=== PATIENT | female | born 1955 | race Caucasian/White ===

== ENCOUNTER 2019-12-21 06:38 | Inpatient (IN) ==
[~2019-12-21 06:38] MED LIST: Acetaminophen IV 1,000 MG/100 ML INFUS..BTL IVPB ONE; Famotidine 20 MG/2 ML VIAL IVP ONE; Pregabalin 75 MG CAPSULE PO ONE; Ringers Solution, Lactated 1,000 ML IVC SCH
[2019-12-21] MEDS ORDERED: CeFAZolin Syr 2,000MG/20 ML 2,000 MG/20 ML SYRINGE IVPB ONE (06:59)
[2019-12-21] MEDS ORDERED: *HR* FentaNYL (PF) 100 MCG/2 ML VIAL ONE (07:16)
[2019-12-21] MEDS ORDERED: *HR* Propofol 200 MG/20 ML VIAL IVP ONE (07:16)
[2019-12-21] MEDS ORDERED: *HR* Midazolam HCl 2 MG/2 ML VIAL ONE (07:16)
[2019-12-21] MEDS ORDERED: Lidocaine -MPF 2% 2 ML VIAL ONE (07:18)
[2019-12-21] MEDS ORDERED: Ondansetron 4 MG/2 ML VIAL ONE (07:21)
[2019-12-21] MEDS ORDERED: Dexamethasone 4 MG/ML VIAL ONE ×2 (07:21→08:11)
[2019-12-21] MEDS ORDERED: *HR* HYDROmorphone PF 0.5 MG/0.5 ML SYRINGE IVP PRN (07:32)
[2019-12-21] MEDS ORDERED: *HR* Metoprolol 5 MG/5 ML VIAL IVP PRN (07:32)
[2019-12-21] MEDS ORDERED: Naloxone 0.4 MG/ML INJ IVP PRN ×2 (07:32→12:37)
[2019-12-21] MEDS ORDERED: *HR* FentaNYL (PF) 100 MCG/2 ML VIAL IVP PRN (07:32)
[2019-12-21] MEDS ORDERED: Ondansetron 4 MG/2 ML VIAL IVP PRN ×2 (07:32→12:37)
[2019-12-21] MEDS ORDERED: flumazeniL 0.5 MG/5 ML VIAL IVP PRN (07:32)
[2019-12-21] MEDS ORDERED: Famotidine 20 MG/2 ML VIAL IVP ONE (07:45)
[2019-12-21] MEDS ORDERED: Bacitracin 50,000 UNIT, Polymyxin B Sulfate 500,000 UNIT, Sodium Chloride IRRigation 1,... IR ONE (07:45)
[2019-12-21] MEDS ORDERED: Acetaminophen IV 1,000 MG/100 ML INFUS..BTL IVPB ONE (07:45)
[2019-12-21] MEDS ORDERED: EPHEDrine 50 MG/ML VIAL ONE (08:56)
[2019-12-21] MEDS ORDERED: Neostigmine Methylsulfate 3 MG/3 ML SYRINGE ONE (09:10)
[2019-12-21] MEDS ORDERED: Ringers Solution, Lactated 1,000 ML IVC SCH (12:37)
[2019-12-21] MEDS: Gabapentin 300 MG CAPSULE PO SCH ×2 (15:27→20:30)
[2019-12-21] MEDS: Primidone 50 MG TABLET PO SCH ×2 (15:27→20:30)
[2019-12-21] MEDS: CeFAZolin 2 GM/120 ML BAG IVPB SCH ×2 (17:57→23:21)
[2019-12-21] MEDS: Budesonide/Formoterol 160/4.5 1 PUFF INH IH SCH (19:56)
[2019-12-21] MEDS: *HR* HYDROcodone/Acet 5/325 mg TABLET PO PRN (20:30)
[2019-12-21] MEDS: *HR* Metformin 500 MG TABLET PO SCH (20:31)
[2019-12-21] MEDS: Acetaminophen 325 MG TABLET PO PRN (23:21)
[2019-12-22] MEDS: Budesonide/Formoterol 160/4.5 1 PUFF INH IH SCH ×2 (07:39→22:53)
[2019-12-22] MEDS: Tiotropium 18 MCG inhalation IH SCH (07:41)
[2019-12-22] MEDS ORDERED: tiZANidine 4 MG TABLET PO PRN (08:58)
[2019-12-22] MEDS ORDERED: NON-FORMULARY MEDICATION 1 EACH EACH (Fish Oil/Dha/Epa [Fish Oil 1,200 Mg Fish Oil] 1 CAP) PO SCH (09:00)
[2019-12-22] MEDS: hydroCHLOROthiazide 25 MG TABLET PO SCH (09:23)
[2019-12-22] MEDS: amLODIPine 5 MG TABLET PO SCH (09:23)
[2019-12-22] MEDS: *HR* OxyCODONE Immed Rel 5 MG TABLET PO PRN ×2 (09:24→19:54)
[2019-12-22] MEDS: Multivit/Ca/Min/Fe/FA 1 TAB TABLET PO SCH (09:24)
[2019-12-22] MEDS: Valsartan 80 MG TABLET PO SCH (09:24)
[2019-12-22] MEDS: Gabapentin 300 MG CAPSULE PO SCH ×3 (09:24→19:55)
[2019-12-22] MEDS: *HR* Metformin 500 MG TABLET PO SCH ×2 (09:24→19:54)
[2019-12-22] MEDS: Metoprolol XL (24 HR) Succ 25 MG TAB.ER.24H PO SCH (09:24)
[2019-12-22] MEDS: Primidone 50 MG TABLET PO SCH ×3 (09:25→19:55)
[2019-12-22] MEDS: Loratadine 10 MG TABLET PO SCH (09:25)
[2019-12-22] MEDS: *HR* HYDROcodone/Acet 5/325 mg TABLET PO PRN ×2 (10:43→16:13)
[2019-12-22] MEDS: Acetaminophen 325 MG TABLET PO PRN (23:38)
[2019-12-23] MEDS: *HR* OxyCODONE Immed Rel 5 MG TABLET PO PRN (07:10)
[2019-12-23] MEDS: Budesonide/Formoterol 160/4.5 1 PUFF INH IH SCH ×2 (08:05→21:51)
[2019-12-23] MEDS: Fluticasone Propionate Nasal 50 MCG/SPRAY BOTTLE NS SCH ×2 (08:12→08:13)
[2019-12-23] MEDS: amLODIPine 5 MG TABLET PO SCH (08:14)
[2019-12-23] MEDS: Multivit/Ca/Min/Fe/FA 1 TAB TABLET PO SCH (08:14)
[2019-12-23] MEDS: Loratadine 10 MG TABLET PO SCH (08:14)
[2019-12-23] MEDS: Valsartan 80 MG TABLET PO SCH (08:14)
[2019-12-23] MEDS: Primidone 50 MG TABLET PO SCH ×3 (08:14→20:55)
[2019-12-23] MEDS: hydroCHLOROthiazide 25 MG TABLET PO SCH (08:15)
[2019-12-23] MEDS: *HR* Metformin 500 MG TABLET PO SCH ×2 (08:15→20:55)
[2019-12-23] MEDS: Metoprolol XL (24 HR) Succ 25 MG TAB.ER.24H PO SCH (08:15)
[2019-12-23] MEDS: Gabapentin 300 MG CAPSULE PO SCH ×3 (08:15→20:55)
[2019-12-23] MEDS: Tiotropium 18 MCG inhalation IH SCH (11:25)
[2019-12-23] MEDS: *HR* HYDROcodone/Acet 5/325 mg TABLET PO PRN (20:57)
[2019-12-24] MEDS: *HR* OxyCODONE Immed Rel 5 MG TABLET PO PRN (05:30)
[2019-12-24] MEDS: Budesonide/Formoterol 160/4.5 1 PUFF INH IH SCH ×2 (07:37→22:04)
[2019-12-24] MEDS: Tiotropium 18 MCG inhalation IH SCH (07:37)
[2019-12-24 09:05] LABS: Basophils % 0.3 %; Eosinophils # 0.1 K/mcL (0.0-0.6); Hematocrit 35.5 % (35.3-44.9); Hemoglobin 11.3 g/dL (11.5-15.4); Immature Granulocytes % 0.4 % (0-4); Lymphocytes % 18.2 %; Mean Corpuscular HGB Conc 31.8 g/dL (31.6-35.5); Mean Corpuscular Hemoglobin 28.3 pg (28.0-33.3); Mean Corpuscular Volume 88.8 fL (83.0-100.0); Mean Platelet Volume 12.3 fL (9.4-12.4); Monocytes # 0.8 K/mcL (0.0-1.3); Monocytes % 7.3 %; Platelet Count 180 K/mcL (140-400); Red Cell Distribution Width 14.6 % (11.5-14.5); Segmented Neutrophils % 72.8 %; White Blood Count 10.9 K/mcL (4.3-11.1)
[2019-12-24 09:11] LABS: BUN/Creatinine Ratio 16 (6-26); Blood Urea Nitrogen 12 mg/dL (8-23); Calcium 9.1 mg/dL (8.6-10.3); Carbon Dioxide 27 mEq/L (23-29); Chloride 101 mEq/L (98-107); Glucose 117 mg/dL (70-105); Osmolality,Calculated 281 (280-300); Sodium 135 mEq/L (136-145); eGFR For African Americans > 60 (> 60); eGFR For Non-African Americans > 60 (> 60)
[2019-12-24] MEDS: hydroCHLOROthiazide 25 MG TABLET PO SCH (09:29)
[2019-12-24] MEDS: Multivit/Ca/Min/Fe/FA 1 TAB TABLET PO SCH (09:30)
[2019-12-24] MEDS: Gabapentin 300 MG CAPSULE PO SCH ×3 (09:30→20:38)
[2019-12-24] MEDS: Primidone 50 MG TABLET PO SCH ×3 (09:30→20:38)
[2019-12-24] MEDS: Valsartan 80 MG TABLET PO SCH (09:30)
[2019-12-24] MEDS: *HR* Metformin 500 MG TABLET PO SCH ×2 (09:31→20:38)
[2019-12-24] MEDS: Metoprolol XL (24 HR) Succ 25 MG TAB.ER.24H PO SCH (09:31)
[2019-12-24] MEDS: amLODIPine 5 MG TABLET PO SCH (09:31)
[2019-12-24] MEDS: Loratadine 10 MG TABLET PO SCH (09:31)
[2019-12-24] MEDS: Fluticasone Propionate Nasal 50 MCG/SPRAY BOTTLE NS SCH (13:50)
[2019-12-25 01:49] LABS: Adenovirus Not Detected (Not Detect); Coronavirus 229E Not Detected (Not Detect); Coronavirus HKU1 Not Detected (Not Detect); Coronavirus NL63 Not Detected (Not Detect); Coronavirus OC43 Not Detected (Not Detect); Human Metapneumovirus Not Detected (Not Detect); Human Rhinovirus/Enterovirus Not Detected (Not Detect); Influenza A Subtype 2009 H1 Not Detected (Not Detect); SARS-CoV-2 Not Detected (Not Detect)
[2019-12-25 01:50] LABS: Bordetella Pertussis Not Detected (Not Detect); Chlamydophila pneumoniae Not Detected (Not Detect); Influenza B Not Detected (Not Detect); Mycoplasma pneumoniae Not Detected (Not Detect); Parainfluenza Virus 1 Not Detected (Not Detect); Parainfluenza Virus 2 Not Detected (Not Detect); Parainfluenza Virus 3 Not Detected (Not Detect); Parainfluenza Virus 4 Not Detected (Not Detect); Respiratory Syncytial Virus Not Detected (Not Detect)
[2019-12-25] MEDS: Budesonide/Formoterol 160/4.5 1 PUFF INH IH SCH (07:59)
[2019-12-25] MEDS: Tiotropium 18 MCG inhalation IH SCH (07:59)
[2019-12-25] MEDS: Valsartan 80 MG TABLET PO SCH (09:48)
[2019-12-25] MEDS: Gabapentin 300 MG CAPSULE PO SCH (09:49)
[2019-12-25] MEDS: amLODIPine 5 MG TABLET PO SCH (09:49)
[2019-12-25] MEDS: Multivit/Ca/Min/Fe/FA 1 TAB TABLET PO SCH (09:49)
[2019-12-25] MEDS: Loratadine 10 MG TABLET PO SCH (09:50)
[2019-12-25] MEDS: Metoprolol XL (24 HR) Succ 25 MG TAB.ER.24H PO SCH (09:51)
[2019-12-25] MEDS: *HR* Metformin 500 MG TABLET PO SCH (09:51)
[2019-12-25] MEDS: hydroCHLOROthiazide 25 MG TABLET PO SCH (09:51)
[2019-12-25] MEDS: Primidone 50 MG TABLET PO SCH (09:51)
[2019-12-25] MEDS: Fluticasone Propionate Nasal 50 MCG/SPRAY BOTTLE NS SCH (09:52)
[2019-12-25 11:17] VITALS: BP 129/78
== END 2019-12-25 13:55 | DRG 454 ==
LOC: SAMDAY 06:38 → 3NENU 11:49
PROVIDERS: ADMIT Orthopaedic Surgery Orthopaedic Surgery of the Spine; ATTEND Orthopaedic Surgery Orthopaedic Surgery of the Spine

== ENCOUNTER 2021-05-29 12:18 | Inpatient (IN) ==
[2021-05-29] MEDS ORDERED: Naloxone 0.4 MG/ML INJ IVP PRN (15:41)
[2021-05-29] MEDS ORDERED: Ondansetron ODT 4 MG TAB.RAPDIS SL PRN (15:41)
[2021-05-29] MEDS ORDERED: Dexamethasone Sodium Phos/PF 10 MG/ML VIAL IVP ONE (16:00)
[2021-05-29] MEDS ORDERED: *HR* Dextrose 50 % in Water (Syg) 50 ML SYRINGE IVP PRN (16:02)
[2021-05-29] MEDS ORDERED: D5% in Water 1,000 ML IVC PRN (16:02)
[2021-05-29] MEDS ORDERED: Dextrose 4 GM Chewable Tablets PO PRN ×2 (16:02)
[2021-05-29] MEDS: Ampicillin/Sulbactam 3,000 MG in 0.9 % Sodium Chloride Mini Bag 100 ML IVPB SCH ×2 (17:00→23:13)
[2021-05-29] MEDS: Insulin LISPRO 300 UNITS/3 ML VIAL SUBQ SCH (17:03)
[2021-05-30] MEDS: Insulin LISPRO 300 UNITS/3 ML VIAL SUBQ SCH ×6 (01:16→23:53)
[2021-05-30 03:56] LABS: Basophils % 0.1 %; Hematocrit 31.1 % (35.3-44.9); Immature Granulocytes % 0.5 % (0-4); Lymphocytes % 18.1 %; Mean Corpuscular HGB Conc 32.2 g/dL (31.6-35.5); Mean Corpuscular Hemoglobin 27.2 pg (28.0-33.3); Mean Corpuscular Volume 84.7 fL (83.0-100.0); Mean Platelet Volume 12.1 fL (9.4-12.4); Monocytes # 0.6 K/mcL (0.0-1.3); Monocytes % 5.5 %; Neutrophils # 8.4 K/mcL (1.6-8.9); Platelet Count 285 K/mcL (140-400); Red Blood Count 3.67 M/mcL (3.82-4.97); Segmented Neutrophils % 75.8 %; White Blood Count 11.1 K/mcL (4.3-11.1)
[2021-05-30 04:20] LABS: BUN/Creatinine Ratio 16 (6-26); Blood Urea Nitrogen 15 mg/dL (8-23); Calcium 9.2 mg/dL (8.6-10.3); Carbon Dioxide 29 mEq/L (23-29); Chloride 102 mEq/L (98-107); Glucose 115 mg/dL (70-105); Magnesium 2.1 mg/dL (1.6-2.6); Osmolality,Calculated 292 (280-300); Potassium 4.1 mEq/L (3.5-5.1); Sodium 140 mEq/L (136-145); eGFR For African Americans > 60 (> 60); eGFR For Non-African Americans > 60 (> 60)
[2021-05-30] MEDS: Ampicillin/Sulbactam 3,000 MG in 0.9 % Sodium Chloride Mini Bag 100 ML IVPB SCH ×4 (06:11→23:49)
[2021-05-30] MEDS ORDERED: Lidocaine -MPF 1% 5 ML AMPUL ID ONE (07:39)
[2021-05-30] MEDS ORDERED: Ferric Subsulfate 8 GM TOPICAL ONE (19:13)
[2021-05-30] MEDS ORDERED: Lidocaine 1% 0 ML ONE (19:13)
[2021-05-30] MEDS ORDERED: *HR* Succinylcholine 200 MG/10 ML VIAL IVP ONE (19:23)
[2021-05-30] MEDS ORDERED: Ondansetron 4 MG/2 ML VIAL ONE (19:23)
[2021-05-30] MEDS ORDERED: *HR* Propofol 200 MG/20 ML VIAL IVP ONE (19:23)
[2021-05-30] MEDS ORDERED: Lidocaine -MPF 4% 5 ML AMPUL ONE (19:23)
[2021-05-30] MEDS ORDERED: Lidocaine -MPF 2% 5 ML VIAL ONE (19:23)
[2021-05-30] MEDS ORDERED: *HR* FentaNYL (PF) 100 MCG/2 ML VIAL ONE (19:23)
[2021-05-30] MEDS ORDERED: *HR* FentaNYL (PF) 100 MCG/2 ML VIAL IVP PRN (19:48)
[2021-05-30] MEDS ORDERED: Ondansetron 4 MG/2 ML VIAL IVP PRN (19:48)
[2021-05-30] MEDS ORDERED: Albuterol 2.5 MG/3 ML NEBULIZER IH PRN (19:48)
[2021-05-30] MEDS ORDERED: Acetaminophen 325 MG RECTAL SUPP RC PRN (20:17)
[2021-05-30] MEDS: Budesonide/Formoterol 160/4.5 1 PUFF INH IH SCH (23:48)
[2021-05-31] MEDS: Ampicillin/Sulbactam 3,000 MG in 0.9 % Sodium Chloride Mini Bag 100 ML IVPB SCH ×2 (05:37→12:30)
[2021-05-31] MEDS: Insulin LISPRO 300 UNITS/3 ML VIAL SUBQ SCH ×2 (05:38→12:30)
[2021-05-31 07:03] LABS: Basophils % 0.1 %; Eosinophils % 0.1 %; Hematocrit 28.9 % (35.3-44.9); Hemoglobin 9.3 g/dL (11.5-15.4); Immature Granulocytes % 0.3 % (0-4); Lymphocytes % 21.9 %; Mean Corpuscular HGB Conc 32.2 g/dL (31.6-35.5); Mean Corpuscular Hemoglobin 27.3 pg (28.0-33.3); Mean Corpuscular Volume 84.8 fL (83.0-100.0); Mean Platelet Volume 11.6 fL (9.4-12.4); Monocytes # 0.6 K/mcL (0.0-1.3); Monocytes % 6.1 %; Neutrophils # 6.6 K/mcL (1.6-8.9); Platelet Count 245 K/mcL (140-400); Red Blood Count 3.41 M/mcL (3.82-4.97); Red Cell Distribution Width 14.9 % (11.5-14.5); Segmented Neutrophils % 71.5 %; White Blood Count 9.2 K/mcL (4.3-11.1)
[2021-05-31 07:29] LABS: BUN/Creatinine Ratio 21 (6-26); Blood Urea Nitrogen 19 mg/dL (8-23); Calcium 8.9 mg/dL (8.6-10.3); Carbon Dioxide 28 mEq/L (23-29); Chloride 104 mEq/L (98-107); Glucose 116 mg/dL (70-105); Osmolality,Calculated 293 (280-300); Phosphorous 4.7 mg/dL (2.7-4.5); Potassium 3.9 mEq/L (3.5-5.1); Sodium 140 mEq/L (136-145); eGFR For African Americans > 60 (> 60); eGFR For Non-African Americans > 60 (> 60)
[2021-05-31] MEDS: Budesonide/Formoterol 160/4.5 1 PUFF INH IH SCH (07:37)
[2021-05-31] MEDS ORDERED: Metoprolol XL (24 HR) Succ 25 MG TAB.ER.24H PO SCH (09:00)
[2021-05-31] MEDS ORDERED: Valsartan 80 MG TABLET PO SCH (09:00)
[2021-05-31] MEDS ORDERED: HYDROCHLOROTHIAZIDE PO SCH (09:00)
[2021-05-31] MEDS ORDERED: Primidone 50 MG TABLET PO SCH ×2 (09:00→21:00)
[2021-05-31] MEDS ORDERED: [UNRECOGNIZED DRUG - OTHER] PO SCH (09:00)
[2021-05-31] MEDS ORDERED: VALSARTAN PO SCH (09:00)
[2021-05-31] MEDS ORDERED: hydroCHLOROthiazide 25 MG TABLET PO SCH (09:00)
[2021-05-31] MEDS: Gabapentin 300 MG CAPSULE PO SCH ×2 (09:32→14:19)
[2021-05-31 11:05] VITALS: BP 128/69; PULSE 91; TEMP 94.2; O2SAT 99
== END 2021-05-31 14:25 | disposition home or self-care (01) | DRG 144 ==
LOC: 3NENU → SUATTDRO 15:28
PROVIDERS: ADMIT Internal Medicine; ATTEND Internal Medicine